=== PATIENT | female | born 1980 | race Hispanic/Latino ===

== ENCOUNTER 2025-06-06 00:32 | Observation (INO) | payer OTHER, SELFPAY ==
[2025-06-05 18:42] VITALS: BP 162/100
[2025-06-05 18:55] LABS: Hematocrit 39.6 % (37.0-47.0); Hemoglobin 13.6 g/dL (12.0-16.0); Mean Corp Hgb Conc. 34.3 g/dL (33.0-37.0); Mean Corpuscular Volume 84.4 fL (81.0-99.0); Nucleated Red Blood Cells % 0 %; Platelet Count 403 10^3/uL (130-400); Red Cell Dist. Width 13.3 % (11.5-14.5)
[2025-06-05 19:09] LABS: HCG, Serum Qualitative Screen Negative
[2025-06-05 19:15] LABS: ALT (SGPT) 19 U/L (0-35); AST (SGOT) 22 U/L (14-36); Albumin 4.6 g/dl (3.5-5.0); Alkaline Phosphatase 101 U/L (38-126); Blood Urea Nitrogen 12 mg/dl (7-17); Calcium 9.8 mg/dl (8.4-10.2); Carbon Dioxide 23 mmol/L (22-30); Chloride 107 mmol/L (98-107); Glucose 151 mg/dl (70-99); Lipase 52 U/L (23-300); Potassium 4.0 mmol/L (3.5-5.1); Sodium 138 mmol/L (135-145); Total Protein 7.7 g/dl (6.3-8.2); eGFR > 60.00
[2025-06-05 21:29] VITALS: BP 129/78
[2025-06-05] MEDS: NSS 1000 IV (21:33)
[2025-06-05] MEDS: ZOFRAN 4 MG IV (21:33)
[2025-06-05] MEDS: DILAUDID 0.5 MG IV (21:33)
[2025-06-05 22:12] VITALS: BP 132/74
[2025-06-05 23:00] VITALS: BP 115/69
--- NOTE | 2025-06-05 23:26 | ED.GENMED ---
History of Present Illness
General
Chief Complaint: Abdominal Pain
Source: patient
Time Seen by Provider: 06/05/25 20:59
History of Present Illness
History of Present Illness:
Note:
CHIEF COMPLAINT(S)
Right upper quadrant abdominal pain.
HISTORY OF PRESENT ILLNESS
The patient is a 45-year-old female who presented with pain in the upper right quadrant of the abdomen, which began this morning. The pain is described as bloating and discomfort primarily in the right upper quadrant. The patient reports tenderness
upon palpation of the right upper quadrant and the epigastric region but denies pain in the lower abdomen. The pain is worse in the right upper quadrant compared to other areas. The patients symptoms and examination findings, including a positive
Elmer sign, suggest gallbladder involvement. The patient experiences mild nausea but reports no significant past abdominal surgeries.
CHRONIC MEDICAL CONDITIONS SIGNIFICANTLY AFFECTING CARE
The patient has a history of hypertension.
MEDICATIONS
The patient was previously taking lisinopril for hypertension but has not been taking it regularly for the past three years.
REVIEW OF SYSTEMS
- Gastrointestinal: Bloating and pain in the right upper quadrant and epigastric region.
- General: Mild nausea.
PHYSICAL EXAM
General: Alert, no acute distress.
Skin: Warm, dry.
Head: Normocephalic, atraumatic.
Neck: Supple, trachea midline.
Eyes, Ears, Nose, Mouth and Throat: Oral mucosa moist.
Cardiovascular: Regular heart rhythm, no murmurs.
Respiratory: Lungs are clear, non-labored respirations.
Gastrointestinal: Mild abdominal distension, moderate tenderness in the right upper quadrant and epigastric region, positive Elmer sign, normal bowel sounds. Mild right lower quadrant tenderness
PROBLEM LIST
Acute Problems:
- Right upper quadrant abdominal pain
-Right lower quadrant abdominal pain
- Mild nausea
Chronic Problems:
- Hypertension
PLAN
- Administer morphine for pain relief.
- Provide intravenous fluids.
- Administer anti-nausea medication.
- Order imaging studies of the upper abdomen to evaluate gallbladder condition.
DIFFERENTIAL DIAGNOSIS
The Differential Diagnosis includes, in no particular order and is not limited to:
1. Cholecystitis versus appendicitis
2. Gallstones
3. Hepatitis
4. Peptic ulcer disease
5. Pancreatitis
6. Right lower lobe pneumonia
7. Liver abscess
8. Gastritis
9. Renal colic
10. Mesenteric ischemia
Disposition:
SUMMARY OF ENCOUNTER
The patient, a 45-year-old female, presented to the emergency department with symptoms suggestive of abdominal pain. A CT scan revealed a dilated, thickened appendix. Laboratory findings indicated leukocytosis with a white blood cell count of 15,000
and neutrophils at 89%. The complete metabolic profile was otherwise normal. test was negative and lipase levels were normal.
DISPOSITION
Admit for likely operative management.
ASSESSMENT
The patients presentation is consistent with acute appendicitis.
MANAGEMENT OF THE PATIENTS CARE WAS DISCUSSED WITH
Discussed with Dr. Burroughs of the surgery department.
PLAN
The patient is to be admitted for likely operative management, kept NPO for now, and covered with antibiotics.
INDEPENDENT REVIEW OF LABS AND INTERPRETATION OF TESTS
- My independent review of CBC shows leukocytosis with a white blood cell count of 15,000 and neutrophils at 89%.
- My independent review of the complete metabolic profile is normal.
- My independent review of test is negative.
- My independent review of lipase is normal.
MEDICAL DECISION MAKING
- Number and Complexity of Problems Addressed: Chronic conditions affecting care - hypertension.
- Data:
- Category 1: My independent interpretation of the CT scan shows a dilated, thickened appendix.
- Category 3: Discussion of management with Dr. Burroughs, a surgeon.
- Risk: Consideration of admission/observation for operative management. Decisions regarding antibiotic therapy and surgical intervention, both associated with risk, were made.
DIAGNOSIS
Acute appendicitis (ICD-10 code K35.80).
Past History
Past History
ED Past Medical History: HTN, Hypercholesterolemia and Psychiatric; Negative Arrthythmia, Asthma, CAD, Cancer or CHF
ED Past Surgical History: None; Negative Cardiac, Cholecystectomy or
Social History
Tobacco: Non-smoker
Alcohol: None
Drug: None
Personal:
Living: with family
Employment: Not employed
Family History
Family History: Hypertension
Phy Exam
Physical Exam
Physical Exam:
.
Course
Orders/Labs/Results
Orders:
Orders
06/05/25 18:45
Test Result ONCE
06/05/25 18:48
Complete Blood Count/With Diff Urgent
Comprehensive Metabolic Panel Urgent
HCG, Serum Qualitative Screen Urgent
Lipase Urgent
06/05/25 21:18
CT Abd/pelvis W Iv Cont Urgent
Comment:
Reason For Exam: R sided abd pain, leukocytosis
0.9% Sodium Chloride 1000 ml [Nss] 1,000 ml IV BOLUS
HYDROmorphone [Dilaudid] 0.5 mg IV NOW STA
Ondansetron Injectable [Zofran] 4 mg IV NOW STA
06/06/25 00:14
Admit/Transfer Patient As Directed
Co-Sign Provider:
Level of Care: Observation services
Assign to:: Medical/Surgical
Physician / Group: Dr. Zuhair Burroughs/ Surgery
Diagnosis: Acute Appendicitis
06/06/25 00:15
Code Status As Directed
Resuscitation Status: Full Code
Abnormal Lab Results
06/05/25
18:48
WBC 15.8 H 10^3/uL
(4.8-10.8)
Plt Count 403 H 10^3/uL
(130-400)
Absolute Neuts (auto) 14.1 H 10^3/uL
(1.4-6.5)
Absolute Lymphs (auto) 0.9 L 10^3/uL
(1.2-3.4)
Neutrophils % 89.4 H %
(42.2-75.2)
Lymphocytes % 5.6 L %
(20.5-51.1)
Creatinine 0.4 L mg/dL
(0.6-1.0)
Glucose 151 H mg/dl
(70-99)
06/05/25 18:48
06/05/25 18:48
Vital Signs
Initial and Last Documented VS:
Initial Vital Signs
Temp Pulse Resp BP Pulse Ox
99.2 F 105 16 162/100 98
06/05/25 18:42 06/05/25 18:42 06/05/25 18:42 06/05/25 18:42 06/05/25 18:42
Last Documented Vital Signs
Temp Pulse Resp BP Pulse Ox
99.2 F 74 10 132/74 96
06/05/25 18:42 06/05/25 22:45 06/05/25 22:45 06/05/25 22:12 06/05/25 23:26
*Pulse Oximetry
SaO2: 96
Oxygen Mode of Delivery: Room air
Patient hypoxic: no
*Critical Care Note
Total Time (30-74mins, 75-104mins- exclusive of procedures): Not Applicable
ED Attending Note
-
Portions of this chart may have been created with voice recognition software.� Occasional wrong word or��sound alike� substitutions may have occurred due to the inherent limitations of voice recognition software.
Discharge Plan
Departure
Patient Disposition: Admit
Date of Disposition: 06/05/25
Time of Disposition: 23:26
Admit to: Med/Surg
Presentation/result/management discussed w/ accepting MD/DO: milan
Discharge Problem:
Acute appendicitis
Interventions
Interventions:
*Risk Screen - Suicide Last Done: 06/05/25 18:42
*General Assessment Last Done: 06/05/25 18:42
*Neglect/Abuse Screening Last Done: 06/05/25 21:35
*ED- Fall Risk Assessment Last Done: 06/05/25 18:42
*ED COVID-19 Vaccine History Last Done: 06/05/25 18:42
AQ-Zgkwdd-Uzlkpphdgo Assessment Last Done: 06/05/25 21:35
[2025-06-06] VITALS (19 sets, daily range): BP systolic 93–143; BP diastolic 53–85
[2025-06-06] MEDS: UNASYN IV (01:00)
--- NOTE | 2025-06-06 01:05 | HPS.HSE ---
Addendum entered and electronically signed by Zuhair Burroughs MD 06/06/25 11:13:
I saw and examined the patient.
The Charcoal [employer]'s note was reviewed and I agree with the note.
Comment: 1 day hx of abd pain, described as RUQ and RLQ, progressive, mod-sev, without radiation. Endorses n/v. Denies f/c. Low grade fever and leukjocytosis noted. ttp to rlq and epigastrium on exam, worst at rlq. CT c/w acute appendicitis. OCTOR
for lap appy. IV abx. Informed consent obtained.
Original Note:
Family Physician
-
Family Physician: INTERVIEWE UNKNOWN - PT NOT
Chief Complaint
-
Abdominal Pain
History of Present Illness
This is a 45-year-old female who presents to [facility] with a PMH notable for HTN, anxiety, and HLD. She presents today with complaints of pain in the upper right quadrant of her abdomen, which began this morning around 0300. The pain is described as
bloating and discomfort primarily in the right upper quadrant she notes that she tried to take Lindy [place] at home without relief. She endorses N/V/D and freq. urination. She denies any sick contacts, diaphoresis, fevers, chest pain, shortness of
breath, dysuria, hematuria, or hematochezia. Denies any surgical history.
She states she has not taken any prescribed medications in at least two years.
No history of similar episodes of abdominal pain.
WBCs 15.8
She received 1L NSS bolus, Dilaudid for pain, Zofran for nausea and Unasyn for ABX
Medical History
Past Medical History
Past Medical History: Reports HTN, Hypercholesterolemia and Psychiatric (Anxiety)
Past Surgical History: Reports None
Social History
Tobacco: Non-smoker
Alcohol: None
Drug: None
Living: With Family
Family History
Family History: Not pertinent
Allergies / Home Medications
Allergies reflects when Allergies were last updated in [employer].
Home Medications with original date entered in [employer]
Allergy/Medication List:
Allergies
Allergy/AdvReac Type Severity Reaction Status Date / Time
pork Allergy Itching Uncoded 11/14/21 05:56
Pt denies any meds taken at home- prescribed or OTC.
Review of Systems
-
History Source: Patient
A 12 point ROS was completed and negative except as noted: Yes
Abdomen/GI: Reports Abdominal Pain, Nausea, Vomiting and Diarrhea
: Reports Frequency
Psych: Reports Anxiety
Physical Exam
Vital Signs
Vital Signs
Temp Pulse Resp BP Pulse Ox
99.2 F 74 10 132/74 96
06/05/25 18:42 06/05/25 22:45 06/05/25 22:45 06/05/25 22:12 06/05/25 23:26
Physical Exam
General: Well Developed
HEENT: NormoCephalic
Respiratory: Clear
Cardiac: S1/S2 and Regular Rhythm
GI: Tender and Distended
Musculoskeletal: No Edema
Skin: Warm and Dry
Neuro: Awake, Alert and Oriented
Psych: Anxious
Laboratory Results
-
06/05/25 18:48
06/05/25 18:48
Laboratory Results
Total Bilirubin 0.7 mg/dl (0.2-1.3) 06/05/25 18:48
AST 22 U/L (14-36) 06/05/25 18:48
ALT 19 U/L (0-35) 06/05/25 18:48
Alkaline Phosphatase 101 U/L (38-126) 06/05/25 18:48
Lipase 52 U/L (23-300) 06/05/25 18:48
Data Reviewed
-
CT Scan: Report Reviewed by me
Lab Data: Labs Reviewed by me
Impression/Plan
-
IMPRESSION/ PLAN:
ABD/PEL CT: The appendix is mildly dilated and fluid filled, measuring up to 8MM in diameter. Small amount of nonspecific, simple- appearing free fluid in the dependent pelvis. Probable tiny renal cysts
Admit to General Surgery- Dr. Zuhair Burroughs
Med Surg
Acute Appendicitis
NPO
IVF
ABX
Antiemetics- EKG ordered last one was taken 2020 -QTC then 397
Pain management
DVT Prophylaxis: SCDs
Full Code�
[2025-06-06] MEDS: NSS 1000 IV (02:06)
[2025-06-06] MEDS: DILAUDID 0.5 MG IV (02:24)
[2025-06-06 05:41] LABS: Hematocrit 32.3 % (37.0-47.0); Hemoglobin 11.1 g/dL (12.0-16.0); Mean Corp Hgb Conc. 34.4 g/dL (33.0-37.0); Mean Corpuscular Volume 86.6 fL (81.0-99.0); Platelet Count 345 10^3/uL (130-400); Red Cell Dist. Width 13.4 % (11.5-14.5)
[2025-06-06 06:08] LABS: Blood Urea Nitrogen 7 mg/dl (7-17); Calcium 8.3 mg/dl (8.4-10.2); Carbon Dioxide 22 mmol/L (22-30); Chloride 111 mmol/L (98-107); Glucose 93 mg/dl (70-99); Potassium 3.8 mmol/L (3.5-5.1); Sodium 137 mmol/L (135-145); eGFR > 60.00
[2025-06-06] MEDS: ZOSYN 50 IV (08:53)
--- NOTE | 2025-06-06 12:20 | OR.RPT ---
Addendum entered and electronically signed by Zuhiar Burroughs MD 06/10/25 12:06:
DOS: 06/06/25
Original Note:
Operative Report
Operative Report
Primary Surgeon: Manjeet
Assisting: Alley GALLO
Pre-op Diagnosis: Acute appendicitis
Post-op Diagnosis: Same
Procedure Performed: Laparoscopic appendectomy
Anesthesia Type: GETA
Specimen / Cultures: Appendix
Estimated Blood Loss: 2cc
Complications: None immediate
Operative Findings: Elongated, turgid and mildly hyperemic appendix, clear serosang fluid in the pelvis. Gallbladder inspected and no evidence of acute inflammation.
Indications: This 45F developed right lower quadrant abdominal and tight upper quadrant pain and on workup was found to have acute appendicitis. Laparoscopic appendectomy was elected.
Description of procedure: The patient was placed on the operating table in the supine position. General anesthesia was induced. A time-out was completed verifying correct patient, procedure, site, positioning, and special equipment prior to
beginning this procedure. An orogastric tube was placed. The abdomen was prepped and draped in the usual sterile fashion. A stab incision was made in left upper quadrant and the Veress needle was inserted. Proper position was confirmed by aspiration
and saline meniscus test. The abdomen was insufflated with carbon dioxide to a pressure of 12 mmHg. The patient tolerated insufflation well.
A 5mm optical trocar was then inserted at the left lower quadrant. The laparoscope was inserted and the abdomen inspected. No injuries from initial trocar placement or Veress needle insertion were noted. Additional trocars were then inserted in the
following locations: a 12-mm trocar at the umbilicus and a 5-mm trocar midline in the suprapubic space. The abdomen was inspected and om,ental adhesions to the abdominal wall were found. These were taken down with the voyant device. The table was
placed in the Trendelenburg position with the right side up. The tip of the appendix was gently grasped with an atraumatic grasper and retracted toward the patient�s feet and abdominal wall. This maneuver exposed the appendiceal blood supply which
was controlled with the voyant device. Following this, a laparoscopic linear cutting stapler with a 45mm spivey load was deployed and used to transect the appendix at its base. The appendix was placed in an endoscopic retrieval bag, removed through the
umbilical port, and passed off the table as a specimen.
We then turned our attention to the staple line, which was noted to be hemostatic. The pelvis was inspected and scant clear serosanguinous fluid was suctioned. The umbilical trocar site was closed at the fascial level laparoscopically with 2-0 PDS
under direct vision. Secondary trocars were removed under direct vision and noted to be hemostatic. The laparoscope was withdrawn and the abdomen was allowed to collapse. The skin was closed with subcuticular sutures of 4-0 monocryl and topical skin
adhesive. The orogastric tube was removed.
The patient tolerated the procedure well and was taken to the postanesthesia care unit in stable condition.
The assistance of Alley GALLO was required due to the complexity of the procedure. During the procedure she assisted with retraction, visualization, resection, and closure of the wound.
[2025-06-06] MEDS: SUBLIMAZE 25 MCG IV (12:51)
[2025-06-06] MEDS: ROXICODONE 5 MG PO (14:18)
== END 2025-06-06 13:53 | disposition home or self-care (01) ==
LOC: ED 00:32
PROVIDERS: Emergency Medicine; ADMITTING PHYSICIAN Surgery; EMERGENCY PHYSICIAN Emergency Medicine
DX: K38.8 Other specified diseases of appendix (principal); K66.0 Peritoneal adhesions (postprocedural) (postinfection); E78.00 Pure hypercholesterolemia, unspecified; I10 Essential (primary) hypertension
CPT/HCPCS: 44970; 74177; 80048; 80053; 83690; 84703; 85025; 85027; 88304; 93005; 96361; 96365; 96375; 99285; C1776; G0378; Q9967